=== PATIENT | female | born 1955 | race Caucasian/White ===

== ENCOUNTER 2021-10-18 11:49 | Emergency (ER) | payer OTHER, SELFPAY ==
--- NOTE | ~2021-10-18 | XR_ITS ---
EXAMINATION: XR wrist RT min 3V EXAM DATE: 10/18/2021 12:14 INDICATION: Fell 3 days ago, right wrist pain. TECHNIQUE: Right wrist frontal, frontal with ulnar deviation, oblique and lateral projections obtain ed and reviewed. There is no prior study for comparison. FINDINGS: Right wrist scapholunate joint space is maintained. There is acute closed posttraumatic no ndisplaced right radial styloid fracture. There is overlying soft tissue swelling. No carpal bone fr actures. IMPRESSION: Acute right radial styloid intra-articular fracture. 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
--- NOTE | ~2021-10-18 | XR_ITS ---
EXAMINATION: [id number] EXAM DATE: 10/18/2021 12:14 INDICATION: Initial encounter following injury, with pain of the right ribs. TECHNIQUE: Frontal projection of the upper right ribs, frontal projection of the lower right ribs, ob lique projection of the right ribs, frontal chest x-ray(s) for interpretation. There is no prior susan dy for comparison. FINDINGS: Probable acute closed posttraumatic nondisplaced right 6th through 9th rib fractures identi fied.. There is no soft tissue abnormality seen. No confluent consolidation, pneumothorax or pleural effusion suspected. Cardiomediastinal silhouette is normal. IMPRESSION: Right 6th through 9th rib fractures, probably acute. No pneumothorax. 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 No pneumothora x.
[2021-10-18 12:17] VITALS: BP 135/70; PULSE 76; RESP 16; TEMP 36.5; O2SAT 98
--- NOTE | 2021-10-18 12:35 | ED.GENADULT ---
HPI - General Adult General Chief complaint: Extremity Injury, Upper Stated complaint: rt wrist injury/rib pain Time Seen by Provider: 10/18/21 12:16 Source: patient and RN notes reviewed Mode of arrival: ambulatory Limitations: no limitations History of Present Illness HPI narrative: Patient presents today complaining of right wrist injury and right rib injury. Patient fell while at a 3 days ago. Her right forearm was curled underneath her right ribs when she fell. Denies numbness or tingling. Denies shortness of breath. She currently rates her pain 7/10 and has been taking ibuprofen and using CBD cream topically with some relief. MD complaint: Rib pain, wrist pain Related Data Allergies Allergy/AdvReac Type Severity Reaction Status Date / Time acetaminophen [From Percocet] AdvReac Nausea Verified 10/18/21 12:04 oxycodone [From Percocet] AdvReac Nausea Verified 10/18/21 12:04 propoxyphene AdvReac Nausea Verified 10/18/21 12:04 [From Darvocet-N] Sulfa (Sulfonamide AdvReac Nausea Verified 10/18/21 12:03 Antibiotics) Review of Systems Review of Systems: CONSTITUTIONAL: Denies body aches, fever, chills, or sweats. EYES: Denies visual changes, redness, or discharge. ENT: Denies rhinorrhea, congestion, sore throat, or otalgia. CARDIOVASCULAR: Denies chest pain, palpitations, or edema. RESPIRATORY: Denies cough or dyspnea. GASTROINTESTINAL: Denies abdominal pain, nausea, vomiting, or diarrhea. GENITOURINARY: Denies dysuria or hematuria. SKIN: Denies rash, itching, or wounds. MUSCULOSKELETAL: Denies back pain, or myalgia.+ Right rib pain, right wrist pain NEUROLOGIC: Denies headache, numbness, tingling, or weakness. PSYCH: Denies depression or anxiety. PMFSH Comments At time of signature, I have reviewed and agree with nursing past medical, surgical, social and family history unless otherwise noted. Please see nursing chart for further information. There is no relevant family history pertinent to the presenting complaint Exam Narrative: GENERAL: Well-appearing, well-nourished, and in no acute distress. HEAD: Normocephalic, atraumatic. EYES: EOMI. No redness or drainage. Conjunctivae normal. ENT: Mucous membranes pink and moist. NECK: Normal AROM. CHEST: No respiratory distress. Clear to auscultation. Tenderness to the right anterior ribs. No crepitus or deformity noted. No ecchymosis or edema noted. HEART: Regular rate and rhythm. No murmur appreciated. Normal peripheral pulses. MUSCULOSKELETAL: No bony tenderness. EXTREMITIES: Right wrist: Tenderness to the distal radius without deformity. Mild edema noted about the wrist. Ecchymosis noted to the volar aspect. Distal sensation intact. Capillary refill normal. Radial pulse normal. Full range of motion noted with increased pain. SKIN: Warm, dry, no rash. Capillary refill normal. Normal skin turgor. NEURO: No focal deficits. Alert and oriented x3. Gait steady. PSYCH: Normal affect. No signs of depression or anxiety. Course Vital Signs Vital signs: Vital Signs Temperature 97.7 F 10/18/21 12:17 Pulse Rate 76 10/18/21 12:17 Respiratory Rate 16 10/18/21 12:17 Blood Pressure 135/70 10/18/21 12:17 Pulse Oximetry 98 10/18/21 12:17 Temperature 97.7 F 10/18/21 12:17 Pulse Rate 76 10/18/21 12:17 Respiratory Rate 16 10/18/21 12:17 Blood Pressure 135/70 10/18/21 12:17 Pulse Oximetry 98 10/18/21 12:17 Reviewed. Pt has been instructed to follow up with her PCP regarding her elevated blood pressure today. Procedures Orthopedic Splinting/Casting Injury #1: Splinting/Casting Date: 10/18/21 Splinting/Casting Time: 12:39 Side: right Upper Extremity Injury Location: wrist Splint: customized in ED OCL: short arm Pre-Procedure Neuro Vascular Exam: normal Post-Procedure Neuro Vascular Exam: normal Medical Decision Making Differential Diagnosis Differential Diagno
== END 2021-10-18 12:53 | disposition home or self-care (01) ==
PROVIDERS: Emergency Provider Nurse Practitioner
DX: S22.41XA Multiple fractures of ribs, right side, initial encounter for closed fracture (principal); S62.101A Fracture of unspecified carpal bone, right wrist, initial encounter for closed fracture; W19.XXXA Unspecified fall, initial encounter
CPT/HCPCS: 29125; 71101; 73110; 99214; A4565; G0463